=== PATIENT | female | born 1975 | race Caucasian/White ===

== ENCOUNTER 2022-04-12 08:51 | Day surgery (SDC) | payer OTHER ==
[2022-04-10 14:23] VITALS: BMI 28.2
[2022-04-12] MEDS ORDERED: PROPOFOL 40 ML ONE ×2 (08:54→12:35)
[2022-04-12] MEDS ORDERED: DEXAMETHASONE SOD PHOSPHATE 4 MG/1 ML VIAL ONE (08:54)
[2022-04-12] MEDS ORDERED: ONDANSETRON 4 MG/2 ML VIAL ONE (08:54)
[2022-04-12] MEDS ORDERED: ceFAZolin SODIUM 1 GM VIAL ONE (08:55)
[2022-04-12] MEDS ORDERED: MIDAZOLAM HCL 2 MG/2 ML SINGLE DOSE VIAL ONE (08:55)
[2022-04-12] MEDS ORDERED: VANCOMYCIN 1,000 MG VIAL (RESTRICTED TO ID ONLY) ONE (09:42)
[2022-04-12] MEDS ORDERED: EPINEPHrine 1:1,000 1,000 MCG/ML ML ONE (09:42)
[2022-04-12] MEDS ORDERED: BUPIVACAINE LIPOSOME/PF (EXPAREL) 266 MG/20 ML VIAL ONE (10:12)
[2022-04-12] MEDS ORDERED: BUPIVACAINE HCL/PF 0.5% (5MG/ML) 10 ML VIAL ONE (10:13)
[2022-04-12] MEDS ORDERED: TRANEXAMIC ACID 1000 MG/10 ML VIAL ONE (10:50)
[2022-04-12] MEDS ORDERED: oxyCODONE HCL 5 MG TABLET PO PRN ×2 (11:19)
[2022-04-12] MEDS ORDERED: ONDANSETRON 4 MG/2 ML VIAL IVPUSH PRN (11:19)
[2022-04-12] MEDS ORDERED: ACETAMINOPHEN 1000 MG/100 ML BAG IVPB ONE (11:20)
[2022-04-12] MEDS ORDERED: LACTATED RINGERS SOLUTION 1,000 ML IV SCH (11:30)
[2022-04-12] MEDS ORDERED: LIDOCAINE HCL 2% 100 MG/5 ML DISP.SYRIN ONE (12:33)
[2022-04-12 14:10] VITALS: TEMP 97.9
[2022-04-12 14:45] VITALS: RESP 20
[2022-04-12 17:57] VITALS: BP 102/63; PULSE 64
== END 2022-04-12 16:45 | disposition home or self-care (01) ==
LOC: FASU 08:51
PROVIDERS: ATTEND Orthopaedic Surgery
PROC: 0MRP47Z Replacement of Left Knee Bursa and Ligament with Autologous Tissue Substitute, Percutaneous Endoscopic Approach (ICD-10-PCS; principal; 2022-04-12 11:00)
PROC: 0SBD4ZZ Excision of Left Knee Joint, Percutaneous Endoscopic Approach (ICD-10-PCS; 2022-04-12 11:00)
DX: S83.512A Sprain of anterior cruciate ligament of left knee, initial encounter (principal); S83.242A Other tear of medial meniscus, current injury, left knee, initial encounter; M17.12 Unilateral primary osteoarthritis, left knee; X58.XXXA Exposure to other specified factors, initial encounter; Y93.9 Activity, unspecified; Y92.9 Unspecified place or not applicable
CPT/HCPCS: 29881; 29888; C1713; 84703; 94760